=== PATIENT | female | born 1980 ===

== ENCOUNTER 2017-10-05 11:08 | Inpatient (IN) | payer OTHER ==
[~2017-10-05] VITALS: Ht 157.5 cm; Wt 71.2 kg
[2017-10-05] MEDS ORDERED: PRENATAL 19 TA1 EACH PO (12:59)
== END 2017-10-08 17:05 | disposition home or self-care (01) | DRG 778 ==
LOC: OB/GYN 11:08 → LDR 11:08 → OB/GYN 10-06 12:56
PROC: BY4FZZZ Ultrasonography of Third Trimester, Single Fetus (ICD-10-PCS; principal; 2017-10-05)
PROC: 4A1HXCZ Monitoring of Products of Conception, Cardiac Rate, External Approach (ICD-10-PCS; 2017-10-05)
DX: O60.03 Preterm labor without delivery, third trimester (principal); Z3A.28 28 weeks gestation of pregnancy; Z34.03 Encounter for supervision of normal first pregnancy, third trimester